=== PATIENT | male | born 1990 | race Caucasian/White ===

== ENCOUNTER 2019-03-24 23:33 | Emergency (ER) | payer SELFPAY ==
[2019-03-25 00:38] VITALS: BP 118/80; PULSE 77; TEMP 98.4; BMI 22.6
[2019-03-25] MEDS ORDERED: AZITHROMYCIN 500 MG TABLET PO ONE (01:00)
[2019-03-25] MEDS ORDERED: metroNIDAZOLE 250 MG TABLET PO ONE (01:00)
[2019-03-25] MEDS ORDERED: AZITHROMYCIN 250 MG TABLET ONE (01:18)
[2019-03-25] MEDS ORDERED: metroNIDAZOLE 250 MG TABLET ONE (01:18)
[2019-03-25] MEDS ORDERED: cefTRIAXone SODIUM 1 GM VIAL ONE (01:18)
[2019-03-25] MEDS ORDERED: LIDOCAINE HCL 1%, 10 MG/ML (20ML VIAL) ONE (01:19)
--- NOTE | 2019-03-25 01:43 | PDOC ---
History of Present Illness - General Chief Complaint: Penile Drainage Stated Complaint: STD SCREENING Time Seen by Provider: 03/25/19 00:44 History Source: Patient Exam Limitations: No Limitations Past History - Past Medical History Allergies/Adverse Reactions: Allergies Allergy/AdvReac Type Severity Reaction Status Date / Time No Known Allergies Allergy Verified 03/25/19 00:14 Home Medications: Ambulatory Orders NK [No Known Home Medication] 03/25/19 - Suicide/Smoking/Psychosocial Hx Smoking History: Never smoked Have you smoked in the past 12 months: No Information on smoking cessation initiated: No Hx Alcohol Use: No Drug/Substance Use Hx: No *Physical Exam - Vital Signs Last Vital Signs Temp Pulse Resp BP Pulse Ox 98.4 F 77 18 118/80 97 03/24/19 23:45 03/24/19 23:45 03/24/19 23:45 03/24/19 23:45 03/24/19 23:45 - Physical Exam General Appearance: No: Apparent Distress Respiratory/Chest: positive: Lungs Clear, Normal Breath Sounds. negative: Respiratory Distress Cardiovascular: positive: Regular Rhythm, Regular Rate, S1, S2. negative: Murmur Gastrointestinal/Abdominal: positive: Normal Bowel Sounds, Soft. negative: Tender, Distended, Guarding, Rebound Integumentary: positive: Normal Color Neurologic: positive: Alert, Normal Mood/Affect ED Treatment Course - Medications Given in the ED: ED Medications Discontinued Medications Generic Name Dose Route Start Last Admin Trade Name Freq PRN Reason Stop Dose Admin Azithromycin 1,000 mg 03/25/19 01:00 03/25/19 01:16 Zithromax PO 03/25/19 01:01 1,000 mg ONCE ONE Administration Ceftriaxone Sodium 250 mg 03/25/19 01:00 03/25/19 01:16 Rocephin - IM 03/25/19 01:01 250 mg ONCE ONE Administration Metronidazole 2,000 mg 03/25/19 01:00 03/25/19 01:16 Flagyl - PO 03/25/19 01:01 2,000 mg NOW ONE Administration Medical Decision Making - Medical Decision Making 28 y/o M hx of chlymadia (around 1-2 years ago, was treated) presents for STD testing. States his ex- told him she had trichomoniasis. Patient states he has 2 sexual partners. Denies fever, testicular discharge, rash, dysuria. Plan: GC testing HIV test IM Ceftriaxone, PO azithromycin, PO flagyl 03/25/19 01:41 HIV negative 03/25/19 03:09 *DC/Admit/Observation/Transfer Diagnosis at time of Disposition: Screening for STD (sexually transmitted disease) - Discharge Dispostion Disposition: HOME Condition at time of disposition: Stable Decision to Admit order: No - Referrals - Patient Instructions Additional Instructions: Thank you for choosing [facility]. It was a pleasure taking care of you. Please refrain from intercourse for 1 week You will notified regarding results of your testing in 2-3 days Return to the Emergency Department if your symptoms worsen or persist or have other concerning symptoms. - Post Discharge Activity
--- NOTE | 2019-03-25 03:02 | PDOC ---
*Physical Exam - Vital Signs Last Vital Signs Temp Pulse Resp BP Pulse Ox 98.4 F 77 18 118/80 97 03/24/19 23:45 03/24/19 23:45 03/24/19 23:45 03/24/19 23:45 03/24/19 23:45 ED Treatment Course - Medications Given in the ED: ED Medications Discontinued Medications Generic Name Dose Route Start Last Admin Trade Name Angelo PRN Reason Stop Dose Admin Azithromycin 1,000 mg 03/25/19 01:00 03/25/19 01:16 Zithromax PO 03/25/19 01:01 1,000 mg ONCE ONE Administration Ceftriaxone Sodium 250 mg 03/25/19 01:00 03/25/19 01:16 Rocephin - IM 03/25/19 01:01 250 mg ONCE ONE Administration Metronidazole 2,000 mg 03/25/19 01:00 03/25/19 01:16 Flagyl - PO 03/25/19 01:01 2,000 mg NOW ONE Administration Medical Decision Making - Medical Decision Making 03/25/19 03:01 Case reviewed with ANTHONY Carey Agree with assessment and plan *DC/Admit/Observation/Transfer Diagnosis at time of Disposition: Screening for STD (sexually transmitted disease) - Discharge Dispostion Disposition: HOME Condition at time of disposition: Stable - Referrals - Patient Instructions Additional Instructions: Thank you for choosing [facility]. It was a pleasure taking care of you. Please refrain from intercourse for 1 week You will notified regarding results of your testing in 2-3 days Return to the Emergency Department if your symptoms worsen or persist or have other concerning symptoms. - Post Discharge Activity
== END 2019-03-25 03:32 | disposition home or self-care (01) ==
LOC: JER 23:33
DX: Z11.3 Encounter for screening for infections with a predominantly sexual mode of transmission (principal); R36.9 Urethral discharge, unspecified
CPT/HCPCS: 36415; 87491; 87591; 99281-25